=== PATIENT | male | born 1965 | race Hispanic/Latino ===

== ENCOUNTER → 2016-08-07 | Outpatient (CLI) | payer OTHER ==
--- NOTE | 2016-08-07 08:38 | RAD ---
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 No lytic or blastic bony lesion Electronically signed by: Jagdeep Betancourt MD 08/07/2016 8:38 AM CDT
--- NOTE | 2016-08-07 09:45 | RAD ---
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 Joint space narrowing most significant medially. No fracture or acute osteochondral lesion. Minimal suprapatellar fluid Electronically signed by: Jagdeep Betancourt MD 08/07/2016 9:45 AM CDT
== END | disposition home or self-care (01) ==
LOC: RAD 07:20
PROVIDERS: ATTEND Orthopaedic Surgery
DX: M25.562 Pain in left knee (principal); M25.552 Pain in left hip

== ENCOUNTER 2016-12-26 11:48 | Emergency (ER) | payer OTHER ==
[2016-12-26] MEDS ORDERED: SODIUM CHLORIDE 0.9% 1000ML 1,000 ML IVS ONE ×2 (12:06→13:09)
[2016-12-26] MEDS ORDERED: POTASSIUM CHLORIDE ELIXIR 20 MEQ/15 ML UD PO ONE (12:50)
[2016-12-26 14:26] VITALS: TEMP 96.4
--- NOTE | 2016-12-26 15:06 | ED.PDOC ---
History of Present Illness - General Chief Complaint: Blood Pressure Problem Stated Complaint: low blood pressure,nausea Time Seen by Provider: 12/26/16 11:49 Source: patient Exam Limitations: no limitations - History of Present Illness Initial Comments: the patient is a 51-year-old male presenting to the emergency room secondary to 24 hours of symptoms of feeling weak and tired and dizzy with any activity. The patient does work outside and didn't think that he overheated yesterday. His urine output has been minimal. He went to his primary care doctor's office this morningand his blood pressure was low. He does take an anti-inflammatory as well as an NEYMAR inhibitor. He also takes Cymbalta. No fevers. No palpitations. No chest pain. No shortness of breath at rest. Timing/Duration: 24 hours Severity: moderate Improving Factors: nothing Worsening Factors: nothing Associated Symptoms: diaphoresis, loss of appetite, malaise, nausea/vomiting, shortness of breath, weakness Allergies/Adverse Reactions: Allergies NO KNOWN ALLERGY Allergy (Verified 07/21/12 08:35) Home Medications: Ambulatory Orders ALPRAZolam [Xanax] 0.25 mg PO PRN 12/26/16 Atorvastatin Calcium [Lipitor] 10 mg PO DAILY 12/26/16 Duloxetine HCl [Cymbalta] 60 mg PO DAILY 12/26/16 Lisinopril 20 mg PO BID 12/26/16 Review of Systems - Review of Systems Constitutional: States: diaphoresis, malaise, weakness EENTM: States: no symptoms reported Respiratory: States: no symptoms reported Cardiology: States: no symptoms reported Gastrointestinal/Abdominal: States: nausea Genitourinary: States: no symptoms reported Musculoskeletal: States: no symptoms reported Skin: States: no symptoms reported Neurological: States: headache - mild Endocrine: States: increased thirst Hematologic/Lymphatic: States: no symptoms reported All other Systems: No Change from Baseline Past Medical History (General) - Patient Medical History Hx Congestive Heart Failure: No Hx Hypertension: Yes Hx Diabetes: No - Vaccination History Hx Influenza Vaccination: No Hx Pneumococcal Vaccination: No - Social History Hx Tobacco Use: Yes Family Medical History - Family History Father Family History: Unknown Living Status: Unknown Physical Exam - Physical Exam General Appearance: Alert, No apparent distress Eye Exam: bilateral normal Ears, Nose, Throat: hearing grossly normal, normal ENT inspection, normal pharynx Neck: full range of motion, supple Respiratory: chest non-tender, lungs clear, normal breath sounds, no respiratory distress, no accessory muscle use Cardiovascular/Chest: normal peripheral pulses, regular rate, rhythm, no edema Peripheral Pulses: radial,right: 2+, radial,left: 2+, dorsalis pedis,right: 2+, dorsalis pedis,left: 2+ Gastrointestinal/Abdominal: non tender, soft Rectal Exam: deferred Back Exam: normal inspection, no CVA tenderness, no vertebral tenderness Extremity: normal range of motion, non-tender, normal inspection, no pedal edema , normal capillary refill - borderline Neurologic: decision unit rn II-XII nml as tested, alert, normal mood/affect, oriented x 3 Skin Exam: normal color Comments: Vital Signs - 24 hr 12/26/16 12/26/16 12/26/16 11:57 12:31 14:25 Temperature 96 F L 96.4 F L Pulse Rate [ 92 H 98 H 61 Right Brachial] Respiratory 16 16 Rate Blood Pressure 110/74 88/55 133/91 [Right Arm] O2 Sat by Pulse 95 99 Oximetry Progress - Progress Progress: 12/26/16 15:07 the patient is a 51-year-old male presenting with symptoms of heat exhaustion along with significant dehydration, related hypotension and acute renal failure. The patient has received 2 L of IV fluids and is feeling better. He was tilt positive. For the next week the patient has to hold his blood pressure medicine, cholesterol medicine, and arthritis medicine. For the next day he is to hold his Cymbalta. He is to increase his fluid intake. He is to avoid overheating for the next week. He does need to have a repeat kidney function checked. His creatinine today was 2.2. ER warnings were given for any worsening. - Results/Orders Results/Orders: Laboratory Tests 12/26/16 12/26/16 12/26/16 12:25 12:25 14:30 WBC 8.6 RBC 5.29 Hgb 17.2 Hct 50.0 MCV 94.5 H MCH 32.5 H MCHC 34.4 RDW 13.5 Plt Count 289 MPV 8.5 Absolute Neuts (auto) 5.80 Absolute Lymphs (auto) 2.00 Absolute Monos (auto) 0.70 Absolute Eos (auto) 0.10 Absolute Basos (auto) 0.00 Neutrophils % 67.6 Lymphocytes % 23.0 Monocytes % 8.1 Eosinophils % 1.0 Basophils % 0.3 Sodium 137 Potassium 3.5 L Chloride 99 L Carbon Dioxide 23 Anion Gap 18.5 H BUN 49 H Creatinine 2.21 H BUN/Creatinine Ratio 22.2 H Random Glucose 128 H Serum Osmolality 288.4 Calcium 9.9 Magnesium 2.4 Total Bilirubin 1.0 AST 27 ALT 26 Alkaline Phosphatase 98 Creatine Kinase 157 CK-MB (CK-2) 1.7 CK-MB (CK-2) % Not Reportable Troponin I < 0.02 B-Natriuretic Peptide < 5.0 Serum Total Protein 8.7 H Albumin 5.5 Globulin 3.2 Albumin/Globulin Ratio 1.7 TSH 3.08 Urine Color Yellow Urine Appearance Clear Urine pH 5.5 Ur Specific [place] 1.020 Urine Protein Trace Urine Glucose (UA) Negative Urine Ketones Negative Urine Blood Negative Urine Nitrite Negative Urine Bilirubin Negative Urine Urobilinogen 0.2 Ur Leukocyte Esterase Negative Urine RBC 0-1 Urine WBC 0-1 Ur Epithelial Cells 1-3 Amorphous Sediment 2+ Urine Bacteria 1+ Hyaline Casts 0-1 Urine Mucus Moderate EKG shows normal sinus rhythm with a normal QT interval. No acute ST segment changes concerning for ischemia. Departure - Departure Clinical Impression: Dehydration, moderate Heat exhaustion due to water depletion Qualifiers: Encounter type: initial encounter Qualified Code(s): T67.3XXA - Heat exhaustion , anhydrotic, initial encounter Acute renal failure Qualifiers: Acute renal failure type: unspecified Qualified Code(s): N17.9 - Acute kidney failure, unspecified Disposition: Discharge to Home or Self Care Condition: Fair Departure Forms: ED Discharge - Pt. Copy, Patient Portal Self Enrollment Instructions: DI for Heat Exhaustion and Heat Stroke, Acute Renal Failure Diet: regular diet Activity: increase activity as tolerated Referrals: Pascual Hurtado MD [Primary Care Provider] - 1-5 Days Home Medications: Ambulatory Orders ALPRAZolam [Xanax] 0.25 mg PO PRN 12/26/16 Atorvastatin Calcium [Lipitor] 10 mg PO DAILY 12/26/16 Duloxetine HCl [Cymbalta] 60 mg PO DAILY 12/26/16 Lisinopril 20 mg PO BID 12/26/16 Additional Instructions: the patient is a 51-year-old male presenting with symptoms of heat exhaustion along with significant dehydration, related hypotension and acute renal failure. The patient has received 2 L of IV fluids and is feeling better. He was tilt positive. For the next week the patient has to hold his blood pressure medicine, cholesterol medicine, and arthritis medicine. For the next day he is to hold his Cymbalta. He is to increase his fluid intake. He is to avoid overheating for the next week. He does need to have a repeat kidney function checked. His creatinine today was 2.2. ER warnings were given for any worsening.
[2016-12-26 15:31] VITALS: BP 148/91; O2SAT 97
== END 2016-12-26 15:20 | disposition home or self-care (01) ==
LOC: ER 11:48
DX: T67.5XXA Heat exhaustion, unspecified, initial encounter (principal); N17.9 Acute kidney failure, unspecified; I10 Essential (primary) hypertension; Z79.899 Other long term (current) drug therapy; Z87.891 Personal history of nicotine dependence; X30.XXXA Exposure to excessive natural heat, initial encounter; Y92.9 Unspecified place or not applicable
CPT/HCPCS: 36415; 80053; 81001; 82550; 82553; 83735; 83880; 84443; 84484; 85025; 93005; J7030

== ENCOUNTER → 2017-06-09 | Outpatient (CLI) | payer OTHER | END | disposition home or self-care (01) | LOC: GMAB 11:58 | PROVIDERS: ATTEND Family Medicine | DX: Z00.01 Encounter for general adult medical examination with abnormal findings (principal) ==

== ENCOUNTER → 2018-08-20 | Outpatient (CLI) | payer OTHER | LOC: GMAE 11:22 | PROVIDERS: ATTEND Family Medicine | DX: Z00.01 Encounter for general adult medical examination with abnormal findings (principal); R94.5 Abnormal results of liver function studies ==

== ENCOUNTER → 2018-08-20 | Outpatient (CLI) | payer OTHER | LOC: US 16:11 | PROVIDERS: ATTEND Family Medicine | DX: K76.0 Fatty (change of) liver, not elsewhere classified (principal) ==

== ENCOUNTER → 2019-10-20 | Outpatient (CLI) | payer OTHER | LOC: GMAE 11:33 | PROVIDERS: ATTEND Family Medicine | DX: Z00.00 Encounter for general adult medical examination without abnormal findings (principal) ==